=== PATIENT | female | born 1985 | race Caucasian/White ===

== ENCOUNTER 2021-08-18 00:34 | Inpatient (IN) ==
[2021-08-18] MEDS ORDERED: Oxytocin in LR 20 UNITS/1,000 ML BAG IVPB ONE (00:59)
[2021-08-18] MEDS ORDERED: Buffered Lidocaine 1% SYRIN 1 ml INTRADERM ONE (01:09)
[2021-08-18] MEDS ORDERED: Lactated Ringers 1000 ml BAG 1,000 ML IV ONE ×2 (01:09→05:30)
[2021-08-18 01:10] LABS: Hematocrit 38 % (35-47); Hemoglobin 13.2 g/dL (12.0-16.0); Mean Corpuscular HGB Conc 34 g/dL (31-36); Mean Corpuscular Hemoglobin 32 pg (27-31); Mean Corpuscular Volume 93 fL (80-97); Mean Platelet Volume 10.3 fL (7.4-10.4); Platelet Count 185 10^3/uL (150-450); Red Blood Count 4.13 10^6 /uL (3.70-4.87); Red Cell Distribution Width 14 % (10-15); White Blood Count 14.1 10^3/uL (3.5-10.8)
[2021-08-18] MEDS ORDERED: Calcium Carb (TUMS) 500 mg CHEW TAB PO PRN (01:34)
[2021-08-18] MEDS ORDERED: Lactated Ringers 1000 ml BAG 1,000 ML IV SCH ×4 (02:00→06:00)
[2021-08-18] MEDS ORDERED: ceFOXitin 2 GM IVPREMIX 2 GM/50 ML BAG ONE (02:24)
[2021-08-18] MEDS ORDERED: Sodium Citrate/Citric Acid LIQ 15 ML UDC ONE (02:24)
[2021-08-18] MEDS ORDERED: OBEPIDURAL (200 ML) 200 ML EPIDURAL ONE (02:52)
[2021-08-18] MEDS ORDERED: Propofol 10 MG/ML 20 ML BTL ONE (03:43)
[2021-08-18] MEDS ORDERED: Oxytocin 10 UNITS/ML 1 ML VIAL ONE (03:43)
[2021-08-18] MEDS ORDERED: Succinylcholine 200 mg VIAL 20 mg/ml 10 ml VIAL (200 mg) ONE (03:43)
[2021-08-18] MEDS ORDERED: Lidocaine 2% PF 5 ML VIAL ONE (03:44)
[2021-08-18] MEDS ORDERED: fentaNYL 100 mcg/2 ml 50 MCG/ML VIAL ONE ×2 (03:46→04:02)
[2021-08-18] MEDS ORDERED: Phenylephrine 40 mcg/mL 10mL (400mcg) SYRINGE ONE (03:46)
[2021-08-18] MEDS ORDERED: Chloroprocaine 3% 20 ml VIAL ONE (03:46)
[2021-08-18] MEDS ORDERED: Midazolam 5 mg/5 ml VIAL 1 mg/ml 5 ml VIAL (5 mg) ONE (04:01)
[2021-08-18] MEDS ORDERED: Ondansetron 4 mg VIAL 2 MG/ML 2 ml VIAL ONE (04:31)
[2021-08-18] MEDS ORDERED: Dexamethasone IV 4 MG/ML VIAL 1 ml VIAL ONE (04:31)
[2021-08-18 05:00] LABS: Hematocrit 29 % (35-47); Hemoglobin 9.6 g/dL (12.0-16.0)
[2021-08-18] MEDS ORDERED: Acetaminophen IV 1 GM/100ML 100 ML IV ONE (05:03)
[2021-08-18 05:12] LABS: Mean Platelet Volume 10.1 fL (7.4-10.4); Platelet Count 128 10^3/uL (150-450)
[2021-08-18 05:22] LABS: Activated Partial Thrombo Time 26.4 seconds (26.0-38.0); Fibrinogen 298.9 mg/dL (110.8-404.3); INR 1.04 (0.86-1.15)
[2021-08-18] MEDS ORDERED: Dibucaine 1% OINT 28.35 GM TUBE PR PRN (05:23)
[2021-08-18] MEDS ORDERED: Witch Hazel PAD JAR TOPICAL PRN (05:23)
[2021-08-18] MEDS ORDERED: Glycerin ADULT 2.4 gm SUPP PR PRN (05:23)
[2021-08-18] MEDS ORDERED: HYDROmorphone 0.5 MG/0.5 ML SYRINGE IV SLOW PU PRN (05:24)
[2021-08-18] MEDS ORDERED: fentaNYL 100 mcg/2 ml 50 MCG/ML VIAL IV PRN (05:29)
[2021-08-18] MEDS ORDERED: Ondansetron 4 mg VIAL 2 MG/ML 2 ml VIAL IV PRN (05:29)
[2021-08-18] MEDS ORDERED: Naloxone 0.4 mg VIAL 0.4 mg/ml 1 ml VIAL IV PRN (05:29)
[2021-08-18] MEDS ORDERED: Sodium Citrate/Citric Acid LIQ 15 ML UDC PO PRN (05:30)
[2021-08-18] MEDS ORDERED: Lactated Ringers 1000 ml BAG 500 ML IV PRN ×2 (05:30)
[2021-08-18] MEDS ORDERED: Phenylephrine 40 mcg/mL 10mL (400mcg) SYRINGE IV PUSH PRN ×2 (05:30)
[2021-08-18] MEDS ORDERED: HYDROmorphone 0.5 MG/0.5 ML SYRINGE ONE (05:31)
[2021-08-18] MEDS ORDERED: Naloxone 0.4 mg VIAL 0.4 mg/ml 1 ml VIAL IV PUSH PRN ×2 (05:38→05:42)
[2021-08-18] MEDS ORDERED: OBEPIDURAL (200 ML) 200 ML EPIDURAL SCH (06:00)
[2021-08-18] MEDS ORDERED: Oxytocin in LR 20 UNITS/1,000 ML BAG IVPB SCH (06:00)
[2021-08-18 06:18] LABS: Albumin 2.6 g/dL (3.2-5.2); Albumin/Globulin Ratio 1.4 (1-3); Calcium 7.5 mg/dL (8.6-10.3); Globulin 1.8 g/dL (2-4); Magnesium 1.4 mg/dL (1.9-2.7); Potassium 4.2 mmol/L (3.5-5.0); Total Bilirubin 0.4 mg/dL (0.2-1.0); Total Protein 4.4 g/dL (6.4-8.9); eGFR CKD-EPI 102.8 (>60)
[2021-08-18] MEDS ORDERED: Methylergonovine 0.2 mg AMPULE 1 ml AMP ONE (06:42)
[2021-08-18 06:48] LABS: Hematocrit 37 % (35-47); Hemoglobin 12.2 g/dL (12.0-16.0); Mean Corpuscular HGB Conc 33 g/dL (31-36); Mean Corpuscular Hemoglobin 32 pg (27-31); Mean Corpuscular Volume 96 fL (80-97); Mean Platelet Volume 10.3 fL (7.4-10.4); Platelet Count 161 10^3/uL (150-450); Red Blood Count 3.83 10^6 /uL (3.70-4.87); Red Cell Distribution Width 14 % (10-15); White Blood Count 27.1 10^3/uL (3.5-10.8)
[2021-08-18 08:26] LABS: ABS Lymphocytes 0.8 10^3/ul (1.0-4.8); ABS Monocytes 0.7 10^3/ul (0-0.8); ABS Neutrophils 25.5 10^3/ul (1.5-7.7); Eosinophil % 0.1 %
[2021-08-18 08:27] LABS: RBC Morphology Normal (Normal)
[2021-08-18] MEDS ORDERED: Magnesium Sulfate 1 GM IV 1 GM/100 ML BAG IV ONE (09:00)
[2021-08-18 09:47] LABS: Hematocrit 31 % (35-47); Hemoglobin 10.6 g/dL (12.0-16.0); Mean Corpuscular HGB Conc 35 g/dL (31-36); Mean Corpuscular Hemoglobin 32 pg (27-31); Mean Corpuscular Volume 93 fL (80-97); Platelet Count 150 10^3/uL (150-450); Red Cell Distribution Width 14 % (10-15); White Blood Count 23.4 10^3/uL (3.5-10.8)
[2021-08-18 11:33] LABS: ABS Basophils 0.2 10^3/ul (0-0.2); ABS Lymphocytes 0.7 10^3/ul (1.0-4.8); ABS Monocytes 0.7 10^3/ul (0-0.8); ABS Neutrophils 21.8 10^3/ul (1.5-7.7); Lymphocyte % 3.1 %
[2021-08-18 13:35] LABS: Urine Appearance Clear; Urine Bilirubin Negative (Negative); Urine Blood 2+ (Negative); Urine Color Straw; Urine Glucose Negative (Negative); Urine Ketones Negative (Negative); Urine Nitrite Negative (Negative); Urine Protein Negative (Negative); Urine Specific Gravity 1.004 (1.002-1.030); Urine Urobilinogen Negative (Negative)
[2021-08-18 13:38] LABS: Urine Bacteria Absent (Absent); Urine Red Blood Cell 1+(3-5/hpf) (Absent); Urine Squamous Epithelial Cell Present (Absent); Urine White Blood Cell Trace(0-5/hpf) (Absent)
[2021-08-19 06:13] LABS: ABS Lymphocytes 1.5 10^3/ul (1.0-4.8); ABS Monocytes 1.3 10^3/ul (0-0.8); ABS Neutrophils 14.6 10^3/ul (1.5-7.7); Eosinophil % 0.2 %; Hematocrit 27 % (35-47); Lymphocyte % 8.5 %; Mean Corpuscular HGB Conc 34 g/dL (31-36); Mean Corpuscular Hemoglobin 32 pg (27-31); Mean Corpuscular Volume 94 fL (80-97); Mean Platelet Volume 9.7 fL (7.4-10.4); Platelet Count 142 10^3/uL (150-450); Red Blood Count 2.83 10^6 /uL (3.70-4.87); Red Cell Distribution Width 15 % (10-15); White Blood Count 17.4 10^3/uL (3.5-10.8)
[2021-08-20 08:34] VITALS: BP 112/57
== END 2021-08-20 12:15 | disposition home or self-care (01) | DRG 788 ==
LOC: MCHOBOUT 00:34 → MCHOB 00:43
PROVIDERS: ADMIT Obstetrics & Gynecology; ATTEND Obstetrics & Gynecology